=== PATIENT | male | born 1940 | race African-American/Black ===

== ENCOUNTER 2017-03-21 02:44 | Inpatient (IN) ==
[2017-03-16 12:49] LABS: MANUAL DIFF NEEDED? NO
[2017-03-16 12:49] LABS: URINE MICRO REVIEW NEEDED? NO; URINE SOURCE CLEAN CATCH
[2017-03-16 12:53] LABS: BASO% 0.4 % (0.0-0.8); EOS# 0.24 X1000 (0.0-0.7); EOS% 3.2 % (0.0-10.0); HEMATOCRIT 35.1 % (42.0-52.0); HEMOGLOBIN 10.9 g/dL (14.0-18.0); IMM GRAN# 0.02 X1000 (0.0-0.04); IMM GRAN% 0.3 % (0.0-0.5); LYMPH# 2.32 X1000 (1.2-3.4); LYMPH% 31.4 % (20.5-51.1); MCH 31.8 PG (27-31); MCHC 31.1 g/dL (33-37); MCV 102.3 FL (81-99); MONO# 0.87 X1000 (0.11-0.59); MONO% 11.8 % (1.7-9.3); MPV 11.6 FL (7.4-10.4); NEUT% 52.9 % (42.2-75.2); PLT 139 X1000 (130-400); RBC 3.43 XMIL (4.7-6.1)
[2017-03-16 12:54] LABS: BILIRUBIN URINE NEGATIVE (NEGATIVE); BLOOD URINE NEGATIVE (NEGATIVE); COLOR YELLOW; GLUCOSE URINE NEGATIVE (NEGATIVE); LEUKOCYTES URINE SMALL (NEGATIVE); NITRITE URINE POSITIVE (NEGATIVE); PROTEIN URINE NEGATIVE (NEGATIVE); SP GRAVITY URINE 1.017; TURBIDITY URINE CLEAR (CLEAR); UROBILINOGEN URINE NORMAL (NORMAL)
[2017-03-16 12:55] LABS: UR EPITHELIAL CELLS <10 /HPF (<10); URINE BACTERIA 4+ /HPF; URINE RBC <10 /HPF (<10)
[2017-03-16 13:02] LABS: INR 1.04; PTT 25.7 Seconds (22.0-36.0)
[2017-03-16 13:22] LABS: AGAP 11; BUN 19 mg/dL (8-22); CALCIUM 8.8 mg/dL (8.8-10.2); CHLORIDE 105 mmol/L (98-107); COSMO 299; POTASSIUM 3.4 mmol/L (3.5-5.1); SODIUM 149 mmol/L (136-145); TCO2 33 mmol/L (25-35)
--- NOTE | 2017-03-16 15:14 | EKG Report ---
Test Performed on : 03/16/2017 12:20:30 PM Test Reason : PAT Blood Pressure : / mmHG Vent. Rate : 063 BPM Atrial Rate : 063 BPM P-R Int : 168 ms QRS Dur : 106 ms QT Int : 430 ms P-R-T Axes : 042 015 -47 degrees QTc Int : 440 ms Sinus rhythm. with occasional premature ventricular complexes. and premature atrial complexes. Nonspecific ST abnormality Abnormal QRS-T angle, consider primary T wave abnormality Abnormal ECG No previous ECGs available Confirmed by Dario Gonzalez MD ([id number]) on 03/18/2017 7:09:23 AM
[2017-03-21] MEDS ORDERED: COLACE ONE (07:21)
[2017-03-21] MEDS ORDERED: REGLAN ONE (07:21)
[2017-03-21] MEDS ORDERED: PEPCID ONE (07:21)
[2017-03-21] MEDS ORDERED: LR 1,000 ML ONE ×2 (07:22→11:59)
[2017-03-21] MEDS ORDERED: LYRICA ONE (07:22)
[2017-03-21] MEDS ORDERED: VANCOMYCIN 1 GM/NS 1 GM/250 ML IVPB ONE (07:22)
[2017-03-21] MEDS ORDERED: CELEBREX ONE (07:22)
[2017-03-21] MEDS ORDERED: DIPRIVAN 1% 500 MG/50 ML BOTTLE ONE (07:59)
[2017-03-21] MEDS ORDERED: TORADOL ONE (08:20)
[2017-03-21] MEDS ORDERED: VANCOMYCIN ONE (08:20)
[2017-03-21] MEDS ORDERED: MARCAINE 0.25% PF/EPI 1:200,000 ONE (08:21)
[2017-03-21] MEDS ORDERED: EXPAREL 1.3% ONE (08:21)
[2017-03-21] MEDS ORDERED: SODIUM CHLORIDE 0.9% ONE (08:21)
[2017-03-21] MEDS ORDERED: CYKLOKAPRON 1,000 MG/NS 1,000 MG/100 ML IVPB ONE ×2 (08:21→08:22)
[2017-03-21] MEDS ORDERED: NEOSPORIN G.U. IRRIGANT ONE (08:22)
[2017-03-21 10:08] LABS: URINE MICRO REVIEW NEEDED? NO; URINE SOURCE CATH
[2017-03-21 11:05] LABS: UR EPITHELIAL CELLS <10 /HPF (<10); URINE BACTERIA NEGATIVE /HPF; URINE RBC <10 /HPF (<10); URINE WBC <10 /HPF (<10)
[2017-03-21 11:29] LABS: COLOR STRAW
[2017-03-21 11:30] LABS: BILIRUBIN URINE NEGATIVE (NEGATIVE); BLOOD URINE NEGATIVE (NEGATIVE); GLUCOSE URINE NEGATIVE (NEGATIVE); LEUKOCYTES URINE NEGATIVE (NEGATIVE); NITRITE URINE NEGATIVE (NEGATIVE); PROTEIN URINE NEGATIVE (NEGATIVE); SP GRAVITY URINE 1.006; TURBIDITY URINE CLEAR (CLEAR); UROBILINOGEN URINE NORMAL (NORMAL)
[2017-03-21] MEDS ORDERED: FENTANYL ONE (11:37)
[2017-03-21] MEDS ORDERED: DIPRIVAN 1% ONE (11:37)
[2017-03-21] MEDS ORDERED: NS 1,000 ML ONE (11:40)
[2017-03-21] MEDS ORDERED: ZOFRAN IV PRN (11:49)
[2017-03-21] MEDS ORDERED: OXY IR PO PRN (11:49)
[2017-03-21] MEDS ORDERED: MILK OF MAGNESIA PO PRN (11:49)
[2017-03-21] MEDS ORDERED: MORPHINE IV PRN (11:49)
[2017-03-21] MEDS ORDERED: NEO-SYNEPHRINE ONE (11:58)
[2017-03-21] MEDS ORDERED: EPHEDRINE ONE (11:59)
[2017-03-21] MEDS ORDERED: ROBINUL ONE (12:22)
[2017-03-21] MEDS ORDERED: VENTOLIN HFA INH PRN (13:33)
--- NOTE | 2017-03-21 13:38 | OPERATIVE NOTE ---
PROCEDURE DATE: 03/21/2017 PREOPERATIVE DIAGNOSIS: Left knee degenerative joint disease. POSTOPERATIVE DIAGNOSIS: Left knee degenerative joint disease. PROCEDURE PERFORMED: Left total knee arthroplasty using a [facility] size 9 femoral component, size 9 tibial base plate, a 14 mm articular insert, and 38 mm patellar component. ANESTHESIA: General. SURGEON: Bob Thomas MD CREDIT ADMINISTRATION SPECIALIST: Kwabena SCHROEDER CREDIT ADMINISTRATION SPECIALIST: ANYA Cruz COMPLICATIONS: None. BLOOD LOSS: Minimal. DRAINS: Hemovac x1. DESCRIPTION OF PROCEDURE: The patient was brought to the operative suite and placed in supine position. After successful administration of general anesthesia, a well-padded tourniquet was placed on the left proximal thigh. The left lower extremity was prepped and draped in the usual sterile fashion. Leg was exsanguinated. Tourniquet insufflated to 350 torr. A lodge incision made beginning at the superior pole of the patella and extended distally to the tibia tuberosity. It was dissected sharply through the skin and subcutaneous tissue down and full-thickness skin flaps were elevated medially and laterally. A medial arthrotomy was made with a vastus snip. The medial capsule was elevated off the medial tibial plateau. The prepatellar fat pad, ACL, PCL, medial meniscus, and lateral meniscus were excised. A drill was entered in the center of the distal femur. An intramedullary guide was placed, distal cutting block was pinned into place, distal cut was made with an oscillating saw. The femur was sized to a size 9, a size 9 cutting block was pinned into place, and the anterior cuts, chamfer cuts, and posterior condylar cuts were made with the oscillating saw. Marginal osteophytes removed rongeur. A box cutting block was pinned into place. A box cut was made with a box osteotome and oscillating saw. Posterior condyle osteophytes removed with a curved osteotome and rongeur. Attention was then directed to the tibia. A drill was entered in the center of the tibia, an intramedullary guide was placed. The alignment was checked with drop leandro, referencing off the anterior cortex to be tibia and the second ray of the foot, and taking 2 mm off the low side of the tibia. The tibial cutting block was pinned into place. The articular surface of the tibial plateau was removed with oscillating saw. There was still found to be sclerotic bone medially, and an extra 2 mm was taken off the tibia moving the cutting guide block down an extra 2 mm, pinning it and then taking the articular surface off with the oscillating saw. Marginal osteophytes were removed with rongeur. The tibia sized to a size 9, a size 9 fin punch was placed. The flexion-extension gaps were checked and balanced at 14 mm. The tibial component, femoral component, and articular insert were placed, taken through range of motion found to have excellent alignment, balancing, and range of motion. Attention was directed to the patella, 9 mm of the articular surface of the patella removed with an oscillating saw. Patella sized to a size 38. A size 38 guide was used drill peg holes. The lateral facet was chamfered 30 to 45 degrees. Patella trial was placed, taken through range of motion found to have excellent patella tracking. All trials were then removed. The knee was copiously irrigated and dried, being certain all bone debris was removed. The tibial component, femoral component, patellar component were cemented and the excess cement being removed with a Burchard. Once the cement had hardened, excess cement was again removed with an osteotome. The knee was again copiously irrigated and dried, being certain all bone and cement were removed. The trial articular insert was removed. The knee was copiously infiltrated with Exparel, including the posterior capsule, anterior capsule, medial and lateral collateral ligaments, anterior musculature, subcutaneous tissue, and then the definitive 14 mm articular insert was placed. Knee was again taken through range of motion again, found no excellent alignment, balancing, range of motion, patellar tracking. A drain was placed exiting superior laterally and the size V-Loc suture was placed running from proximal to distal and then the skin edge approximated with 2-0 Vicryl. The skin was closed with Prineo. An Tawanda wrap and a cooling blanket were applied. The patient tolerated the procedure well without complication. At the end of the procedure, all counts correct x2. The patient was transferred to the recovery room in stable condition. cc: Bob Thomas MD
[2017-03-21] MEDS ORDERED: VERSED ONE (15:35)
[2017-03-21] MEDS: ULTRAM PO SCH ×3 (15:36→21:53)
[2017-03-21] MEDS: NS 1,000 ML IV SCH ×2 (15:37→19:05)
[2017-03-21] MEDS: TYLENOL PO SCH (17:30)
[2017-03-21] MEDS: KEFZOL 2 GM/D5W 2 GM/50 ML IVPB IV SCH (17:31)
[2017-03-21] MEDS ORDERED: ZOCOR PO SCH (21:00)
[2017-03-21] MEDS ORDERED: AMBIEN PO PRN (21:00)
[2017-03-21] MEDS: PERIDEX MT SCH (21:52)
[2017-03-21] MEDS: COLACE PO SCH (21:52)
[2017-03-21] MEDS: SEPTRA DS PO SCH (21:53)
[2017-03-21] MEDS: COREG PO SCH (21:53)
[2017-03-21] MEDS: LYRICA PO SCH (21:53)
[2017-03-22] MEDS ORDERED: HALL'S COUGH LOZENGE MT PRN (00:17)
[2017-03-22] MEDS: TYLENOL PO SCH ×2 (00:31→05:58)
[2017-03-22] MEDS: KEFZOL 2 GM/D5W 2 GM/50 ML IVPB IV SCH (01:42)
[2017-03-22] MEDS: NS 1,000 ML IV SCH (01:51)
[2017-03-22 05:42] LABS: HEMATOCRIT 27.4 % (42.0-52.0); HEMOGLOBIN 8.5 g/dL (14.0-18.0)
[2017-03-22] MEDS: ULTRAM PO SCH (05:58)
[2017-03-22] MEDS ORDERED: XARELTO PO SCH (06:00)
[2017-03-22 06:07] LABS: AGAP 10; BUN 17 mg/dL (8-22); CALCIUM 8.2 mg/dL (8.8-10.2); CHLORIDE 104 mmol/L (98-107); COSMO 285; POTASSIUM 4.1 mmol/L (3.5-5.1); SODIUM 141 mmol/L (136-145); TCO2 27 mmol/L (25-35)
[2017-03-22] MEDS ORDERED: FISH OIL CONCENTRATE PO SCH (09:00)
[2017-03-22] MEDS ORDERED: CELEBREX PO SCH (09:00)
[2017-03-22] MEDS ORDERED: DECADRON IV ONE (09:00)
[2017-03-22] MEDS ORDERED: FOLIC ACID PO SCH (09:00)
[2017-03-22] MEDS ORDERED: LASIX PO SCH (09:00)
[2017-03-22] MEDS ORDERED: PRINIVIL PO SCH (09:00)
[2017-03-22] MEDS ORDERED: VITAMIN B-12 PO SCH (09:00)
[2017-03-22] MEDS ORDERED: PEPCID PO SCH (09:00)
[2017-03-22] MEDS ORDERED: NIACIN PO SCH (09:00)
[2017-03-22] MEDS: PERIDEX MT SCH (09:04)
[2017-03-22] MEDS: COREG PO SCH (09:05)
[2017-03-22] MEDS: SEPTRA DS PO SCH (09:05)
[2017-03-22] MEDS: LYRICA PO SCH (09:05)
[2017-03-22] MEDS: COLACE PO SCH (09:07)
[2017-03-22 11:15] VITALS: BP 117/61
--- NOTE | 2017-03-22 16:56 | DISCHARGE SUMMARY ---
ADMISSION DATE: 03/21/2017 DISCHARGE DATE: 03/22/2017 DISCHARGE DIAGNOSIS: Left knee degenerative joint disease status post left total knee arthroplasty. DISCHARGE MEDICATIONS: See discharge medication list. DISPOSITION: The patient is discharged home with home health. DISCHARGE INSTRUCTIONS: Instructions for total knee arthroplasty protocol. Instructed to return to see Dr. Thomas next . HOSPITAL COURSE: On the day of admission, patient underwent a left total knee arthroplasty. His postoperative course was unremarkable. At discharge, he is afebrile, tolerating a regular diet, ambulating well with physical therapy. Yesterday he walked 75 feet. His wound is clean, dry, and intact without sign of infection. His hemoglobin is 8.5 and his hematocrit is 27.4. His drain output is 15 mL. He is discharged home in stable condition with instructions to follow up as described above. Dictated by FERMIN Dave for Bob Thomas MD cc: FERMIN Dave MD
== END 2017-03-22 15:53 | disposition home health service (06) ==
LOC: SURHOLD 02:44 → 4N 10:51
PROVIDERS: ADMIT Orthopaedic Surgery; ATTEND Orthopaedic Surgery